=== PATIENT | female | born 2005 | race Caucasian/White ===

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

== ENCOUNTER → 2024-07-26 | Outpatient (CLI) | payer OTHER, SELFPAY ==
[2024-07-31 08:13] LABS: Deamidated Gliadin IgA 3 units (0-19); Deamidated Gliadin IgG 2 units (0-19); Endomysial Antibody IgA Negative (Negative); Immunoglobulin A 162 mg/dL (87-352); t-Transglutaminase IgA <2 U/mL (0-3)
== END | disposition home or self-care (01) ==
PROVIDERS: PCP Family Medicine; Referring Provider Family Medicine; Visit Provider Family Medicine
DX: R10.9 Unspecified abdominal pain (principal)
CPT/HCPCS: 36415; 82784; 83516; 86255

== ENCOUNTER 2024-09-03 10:09 | Emergency (ER) | payer OTHER, SELFPAY ==
[2024-09-03 10:10] VITALS: BP 107/58; PULSE 125; RESP 16; TEMP 36.7; O2SAT 98; BMI 20.5
[2024-09-03 10:12] VITALS: BP 107/58; PULSE 125; RESP 16; TEMP 36.7; O2SAT 98
--- NOTE | 2024-09-03 10:52 | EX.ED.DYSGE1 ---
HPI History of Present Illness Chief Complaint: Nausea/Vomiting/Diarrhea Informant: patient and parent Narrative Narrative: 18-year-old female presenting to the emergency room with vomiting and diarrhea. Patient states no one else is sick at home and everybody has been eating the same food. Patient states that she has not had much diarrhea but states that it is because I have not had anything to eat. She states that she is having bilious vomiting. She denies any abdominal distention or fever. She has a history of POTS and states that she feels very dehydrated. Patient states that she was recently treated for UTI about 3 weeks ago. Review of her records on her phone shows that she was on nitrofurantoin. She denies any blood in the stool or the vomit. No mucus. [facility] Medical History (Updated 09/03/24 @ 12:[address] Acosta Leger DO) GERD (gastroesophageal reflux disease) Migraine Postural orthostatic tachycardia syndrome [POTS] Seasonal allergies Home Medications ?Medication ?Instructions ?Recorded ?Last Taken ?Type rizatriptan 10 mg tablet 1 tab PO Q2H PRN Headache 07/24/19 Unknown History ondansetron 4 mg disintegrating 4 mg PO Q6H PRN PRN Nausea #15 tabs 09/03/24 Unknown Rx tablet pantoprazole 20 mg tablet,delayed 20 mg PO DAILY 09/03/24 Unknown History release Allergy/AdvReac Type Severity Reaction Status Date / Time No Known Allergies Allergy Verified 09/03/24 10:13 Social History Smoking Status: Never smoker alcohol intake: never ROS ROS ED Constitutional Constitutional ED: Denies chills, fever(s) or weight loss Eyes Eyes: Denies change in vision or diplopia ENT ENT ED: Denies ear pain, rhinorrhea or sore throat Cardiovascular Cardiovascular: Denies chest pain, orthopnea, palpitations or racing heartbeat Respiratory/Chest Respiratory/Chest: Denies cough, dyspnea or orthopnea Gastrointestinal Gastrointestinal: Reports diarrhea, nausea and vomiting; Denies abdominal pain Genitourinary Genitourinary ED: Denies dysuria, hematuria or urinary frequency Musculoskeletal Musculoskeletal: Denies arthralgias or myalgias Integumentary Denies abscess or rash Neurologic Neurologic: Denies headache(s) or weakness Psychiatric Psychiatric: Denies anxiety, depression, suicidal ideation or suicidal thoughts Endocrine Endocrinology: Denies polydipsia, polyphagia or polyuria Allergic/Immunologic Allergic/Immunologic ED: Denies mouth swelling, tongue swelling or urticaria EXAM Physical Exam Const Vital Signs: 09/03/24 10:10 09/03/24 10:12 Temperature 98.1 F 98.1 F Temperature Source Oral Oral Pulse Rate 125 H 125 H Respiratory Rate 16 16 Blood Pressure 107/58 L 107/58 L Blood Pressure Mean 74 74 Pulse Ox 98 98 Oxygen Delivery Method Room Air Positive well nourished and well developed General Appearance ED: well developed and NAD HEENT Reports normocephalic, head/scalp atraumatic and moist mucous membranes Eyes PERRL and EOMs intact bilaterally Neck no lymphadenopathy, supple and no JVD Resp normal respiratory effort and clear to auscultation bilaterally Cardio regular rate, regular rhythm and no murmurs Rate: tachycardic GI normal to inspection, nondistended, normoactive bowel sounds and non-tender Palpation: soft Back/Spine no CVA tenderness and normal ROM Extremity normal to inspection General Extremety ED: Negative for edema General Extremity: Negative for edema Neuro oriented x3 and CN's II-XII intact bilaterally Sensorium / Orientation: alert Motor Exam: strength 5/5 throughout Psych mental status grossly normal Mood & Affect: Negative for depressed or tearful Skin no rashes or lesions noted and no wounds MDM MDM MDM Narrative Medical decision making narrative: Differential diagnosis includes dehydration POTS gastroenteritis (viral and bacterial) electrolyte abnormalities hypoglycemia hyperglycemia Patient received IV fluids as well as Zofran. Potassium noted to be low at 3.2 with a glucose of 109 creatinine 0.49 BUN of 15.. Serum CO2 is 25. Her symptoms have been present for less than 24 hours. I think the potassium 3.2 is most likely send electrolyte shift should normalize as she hydrates and advance his diet. I will write for Zofran at home. Patient to return if worsening or concerns History & Record Review Discussion w/independent historian: Patient and Family Lab Data Attestation: I reviewed the patient's lab results. Labs: Laboratory Results - last 24 hr 09/03/24 11:15 Sodium 136 Potassium 3.2 L Chloride 106 Carbon Dioxide 25.0 Anion Gap 5 BUN 15 Creatinine 0.49 L Estim Creat Clear Calc 173.23 Est GFR (MDRD) Af Amer 209 Est GFR (MDRD) Non-Af 173 BUN/Creatinine Ratio 30.8 H Glucose 109 H Calcium 9.1 Discharge Plan Triage Chief Complaint: Nausea/Vomiting/Diarrhea ED Provider: Acosta Leger Dx/Rx/DC Orders Clinical Impression: Gastroenteritis, Acute hypokalemia Instructions: ED Gastroenteritis, Viral (Adult) Prescriptions: New ondansetron 4 mg tablet,disintegrating 4 mg PO Q6H PRN PRN (Reason: Nausea) Qty: 15 0RF No Action rizatriptan 10 MG tablet 1 tab PO Q2H PRN (Reason: Headache) Patient Comments: TAKE 1 TABLET BY MOUTH NEEDED, MAY REPEAT IN 2 HOURS IF NEEDED pantoprazole 20 mg tablet,delayed release (DR/EC) 20 mg PO DAILY Primary Care Provider: Jw Sanchez Referrals: Jw Sanchez MD [Primary Care Provider] - Print Language: Bulgarian Disposition Disposition: Home, Self Care
[2024-09-03] MEDS: Ondansetron 4 MG/2 ML Vial IV (11:11)
[2024-09-03] MEDS: 0.9% Normal Saline (1000mL) 1,000 ML 1000 ML IV (11:11)
[2024-09-03 11:35] LABS: Anion Gap 5 (5-15); BUN 15 mg/dL (7-18); BUN/Creat Ratio 30.8 RATIO (10-20); Calcium,Total 9.1 mg/dL (8.5-10.1); Chloride 106 mmol/L (98-107); Creatinine, Serum 0.49 mg/dL (0.55-1.02); EST Glomerular Filtration Rate 173 mL/min (>60); Est Glom Filt Rate - Afr Amer 209 mL/min (>60); Estimated Creatinine Clearance 173.23 ml/min; Glucose 109 mg/dL (74-106); Potassium 3.2 mmol/L (3.5-5.1); Sodium Level 136 mmol/L (136-145)
[2024-09-03 12:35] VITALS: BP 92/53; PULSE 88; RESP 16; TEMP 36.5; O2SAT 99
== END 2024-09-03 12:35 | disposition home or self-care (01) ==
PROVIDERS: Emergency Provider Emergency Medicine; PCP Family Medicine; Visit Provider Emergency Medicine
DX: K52.9 Noninfective gastroenteritis and colitis, unspecified (principal); E87.6 Hypokalemia
CPT/HCPCS: 80048; 96361; 96374; 99283; J2405

== ENCOUNTER 2024-12-07 14:18 | Emergency (ER) | payer OTHER, MEDICAID, SELFPAY ==
[2024-12-07 14:19] VITALS: BP 110/58; PULSE 89; RESP 18; TEMP 36.8; O2SAT 100; BMI 21.6
--- NOTE | 2024-12-07 14:51 | EKG12_ITS ---
Test Reason : CP Blood Pressure : */* mmHG Vent. Rate : 74 BPM Atrial Rate : 74 BPM P-R Int : 144 ms QRS Dur : 88 ms QT Int : 374 ms P-R-T Axes : 61 72 45 degrees QTcB Int : 415 ms Normal sinus rhythm Normal ECG Confirmed by MICHELLE OSORIO, REESE ([id number]), news videotape editor RENETTA SEGAL ([id number]) on 12/10/2024 5:54:12 AM Referred By: DEJAN/AGUSTO Confirmed By: REESE MARTINEZ MD
--- NOTE | 2024-12-07 14:54 | ED.VIS.CHEST ---
HPI History of Present Illness Chief Complaint: Chest Pain Informant: patient Narrative Narrative: Patient is a 18-year-old female with history of GERD and POTS presenting with chest discomfort, anterior neck pain and shortness of breath. Patient was seen at [facility] Emergency room yesterday for similar symptoms. She states she has developed chest pain in the center of her chest that radiates up to her neck. Yesterday she had strep swab that was negative, chest x-ray, CBC, BMP and D-dimer which were all negative. She does report a history of a postoperative DVT and her mother has a history of tubes clotting disorders. Today patient states that her chest pain which used to be intermittent and worse with deep breathing is mild more constant but still exacerbated by breathing. She states she feels like she is breathing through a straw on her neck. She is coughing today. She denies any fever or chills. Denies any nausea or vomiting. Does not feel worse when she lays flat. Does have a history of acid reflux and tried taking Mylanta with no relief of her symptoms. Patient denies any swelling of her legs. She has IUD. She denies concern for . Is not reporting any urinary symptoms. Patient does note she was treated for strep throat about a month ago. She states that resolved. She currently denies any sore throat. She was told yesterday that her throat did look red. She also does report a history of seasonal allergies. Through [facility], results from yesterday show normal D-dimer (less than 190), chest x-ray with no acute process, BMP that is normal and CBC that was also normal with no monocyte predominance. Strep swab is negative. [facility] Medical History GERD (gastroesophageal reflux disease) Migraine Postural orthostatic tachycardia syndrome [POTS] Seasonal allergies Home Medications ?Medication ?Instructions ?Recorded ?Last Taken ?Type rizatriptan 10 mg tablet 1 tab PO Q2H PRN Headache 07/24/19 Unknown History ondansetron 4 mg disintegrating 4 mg PO Q6H PRN PRN Nausea #15 tabs 09/03/24 Unknown Rx tablet pantoprazole 20 mg tablet,delayed 20 mg PO DAILY 09/03/24 Unknown History release Allergy/AdvReac Type Severity Reaction Status Date / Time No Known Allergies Allergy Verified 12/07/24 14:18 Social History Smoking Status: Never smoker alcohol intake: never ROS ROS ED Constitutional Constitutional ED: Denies chills or fever(s) ENT ENT ED: Reports other Details: anterior neck pain ; Denies rhinorrhea or sore throat Cardiovascular Cardiovascular: Reports chest pain; Denies orthopnea or palpitations Respiratory/Chest Respiratory/Chest: Reports cough and dyspnea; Denies orthopnea or sputum Gastrointestinal Gastrointestinal: Denies abdominal pain, nausea or vomiting Musculoskeletal Musculoskeletal: Denies arthralgias or myalgias Integumentary Denies rash Neurologic Neurologic: Denies paresthesias or weakness Psychiatric Psychiatric: Denies anxiety Hematologic/Lymphatic Hematologic/Lymphatic: Denies easy bleeding or easy bruising EXAM Physical Exam Const Vital Signs: 12/07/24 14:19 12/07/24 14:43 12/07/24 15:18 Temperature 98.3 F 98.9 F Temperature Source Oral Oral Pulse Rate 89 80 Respiratory Rate 18 18 Respiratory Effort Normal Blood Pressure 110/58 L 99/76 Blood Pressure Mean 75 83 Pulse Ox 100 98 Oxygen Delivery Method Room Air Room Air 12/07/24 16:18 12/07/24 17:00 12/07/24 17:12 Temperature 98.9 F Temperature Source Pulse Rate 79 78 64 Respiratory Rate 18 16 18 Respiratory Effort Blood Pressure 102/64 128/78 H 99/71 Blood Pressure Mean 76 94 80 Pulse Ox 100 98 99 Oxygen Delivery Method Room Air Room Air Positive well nourished and well developed General Appearance ED: well developed and NAD HEENT Reports moist mucous membranes HEENT Narrative: Mildly injected oropharynx more consistent with allergies or possible reflux. Normal tympanic membranes. Uvula is midline. Normal phonation. Eyes PERRL Neck supple Neck Narrative: No significant lymphadenopathy. Normal range of motion of the neck. There is mild tenderness over the intra aspect of the neck where the thyroid is. No nodules appreciated. Chest Wall inspection of chest normal and palpation of chest normal Resp normal respiratory effort and clear to auscultation bilaterally Auscultation: Negative for rhonchi or wheezes Cardio regular rate, regular rhythm and no murmurs Peripheral Pulses: radial pulses present and dorsalis pedis pulses present GI normal to inspection, nondistended, normoactive bowel sounds, soft to palpation and non-tender Extremity normal to inspection General Extremety ED: Negative for edema General Extremity: Negative for edema Neuro oriented x3 Sensorium / Orientation: awake and alert Motor Exam: Negative for general weakness Psych mental status grossly normal Skin no rashes or lesions noted and no wounds Heart Score History: Slightly/Non-Suspicious ECG: Normal Age: </= 45 years Risk Factors: No Risk Factors Score: 0 MDM MDM MDM Narrative Medical decision making narrative: Patient is evaluated for worsening chest pain with shortness of breath. Was seen at [facility] Emergency room yesterday for the same complaints which she feels her symptoms are more severe today. Patient had a D-dimer yesterday that was less than 190 and I do not think this needs to be repeated. She is not hypoxic, tachycardic or tachypneic. She does have some tenderness to palpation over the anterior lower neck surgery could possibly have a thyroiditis or some other type of thyroid disease but TSH is added on. This is normal. Her workup is very reassuring with a normal CBC, CMP, high-sensitivity troponin and TSH. Chest x-ray as well as soft tissue neck x-ray reviewed by myself as well as radiology does not show any acute process. Given her stable workup compared to yesterday and improvement with Toradol as well as normal vital signs I think that she is stable for outpatient follow-up. Counseled that I do not know the exact cause of her symptoms but the differential still includes seasonal allergies, muscle skeletal pain, esophagitis/reflux and less likely cardiac cause or arrhythmia. Encouraged to follow-up outpatient to primary care doctor and get to return the emergency room should she ever progression worsening of her symptoms. Patient and mother verbalized agreement with this plan. Patient discharged home in stable and improved condition. History & Record Review Additional record(s) reviewed:: Prior outpatient record (see HPI) Lab Data Attestation: I reviewed the patient's lab results. Labs: Laboratory Results - last 24 hr 12/07/24 15:00 WBC 9.4 RBC 4.28 Hgb 12.1 Hct 36.8 L MCV 86.0 MCH 28.3 MCHC 32.9 RDW Std Deviation 39.8 RDW Coeff of Guerrero 12.7 Plt Count 210 MPV 8.6 Immature Gran % (Auto) 0.500 Neut % (Auto) 63.7 Lymph % (Auto) 27.1 [place] % (Auto) 6.7 Eos % (Auto) 1.5 Baso % (Auto) 0.5 Absolute Neuts (auto) 6.0 Absolute Lymphs (auto) 2.54 Nucleated RBC % 0 Sodium 139 Potassium 3.9 Chloride 105 Carbon Dioxide 24.2 Anion Gap 10 BUN 9 Creatinine 0.53 L Estim Creat Clear Calc 166.03 Est GFR (MDRD) Non-Af 137 BUN/Creatinine Ratio 17.2 Glucose 93 Calcium 9.4 Total Bilirubin 0.85 AST 19 ALT 14 Alkaline Phosphatase 100 Troponin T High Sens < 6 Total Protein 6.3 Albumin 4.2 Globulin 2.1 L Albumin/Globulin Ratio 2.0 TSH 0.716 Radiography Diagnostic Testing: Clinical Impression(s) from Imaging Studies Chest X-Ray 12/07/24 15:10 IMPRESSION: NEGATIVE CHEST Reading Location: [facility] Soft Tissue Neck X-Ray 12/07/24 15:10 IMPRESSION: Unremarkable exam. Reading Location: [facility] Rhythm Strip Rhythm Strip: Sinus Rhythm Rate: 74 Ectopy: None EKG Initial EKG: Attestation: I personally reviewed and interpreted this EKG as follows: Interpretation: Sinus Rhythm Comments: Normal sinus rhythm rate of 74 bpm Normal axis Normal intervals Normal ST segments Discharge Plan Triage Chief Complaint: Chest Pain ED Provider: Daya Castro Dx/Rx/DC Orders Clinical Impression: Acute dyspnea, Chest pain of uncertain etiology, Anterior neck pain Instructions: ED Chest Pain, Uncertain Cause, ED Dyspnea, ED Neck Pain Prescriptions: No Action rizatriptan 10 MG tablet 1 tab PO Q2H PRN (Reason: Headache) Patient Comments: TAKE 1 TABLET BY MOUTH NEEDED, MAY REPEAT IN 2 HOURS IF NEEDED pantoprazole 20 mg tablet,delayed release (DR/EC) 20 mg PO DAILY ondansetron 4 mg tablet,disintegrating 4 mg PO Q6H PRN PRN (Reason: Nausea) Qty: 15 0RF Primary Care Provider: Jw Sanchez Referrals: Jw Sanchez MD [Primary Care Provider] - Activity Restrictions/Additional Instructions: Your workup today was very reassuring and normal. The cause of your constellation of symptoms is not clear. Please follow-up outpatient the primary care doctor. You may take Tylenol or ibuprofen as needed for pain. Print Language: German Disposition Disposition: Home, Self Care Discharge Date/Time: 12/07/24 17:13
[2024-12-07] MEDS: Ketorolac 15 MG/ML Vial IV (15:06)
[2024-12-07 15:09] LABS: Absolute Lymphocyte Count 2.54 X10^3/uL (0.83-4.51); Basophil# 0.05 X10^3/uL; Basophil% 0.5 % (0-1); Eosinophil# 0.14 X10^3/uL; Eosinophils% 1.5 % (0-5); Hematocrit 36.8 % (37-47); Hemoglobin 12.1 g/dL (12.0-15.0); Lymphocyte # 2.54 X10^3/ul (0.83-4.51); Lymphocyte % 27.1 % (19-41); Mean Corp Hgb Conc 32.9 g/dL (32-36); Mean Corpuscular Hgb 28.3 pg (27.0-32.0); Mean Platelet Vol. 8.6 fl (6.2-12.0); Monocyte# 0.63 X10^3/uL; Monocyte% 6.7 % (0-10); NRBC Flagged by Analyzer 0 % (0-5); Neutrophil # 5.96 X10^3/uL (2.7-7.7); Neutrophil % 63.7 % (47-70); Platelet Count 210 K/mm3 (150-450); RBC Distribution Width CV 12.7 % (11.6-14.6); RBC Distribution Width SD 39.8 fl (35.1-43.9); Red Blood Count 4.28 M/mm3 (4.2-5.4); White Blood Count 9.4 K/mm3 (4.4-11.0)
--- NOTE | 2024-12-07 15:10 | RAD_ITS ---
PROCEDURE: NECK FOR SOFT TISSUE 12/07/2024 REASON FOR EXAM: PAIN, ANTERIOR NECK TECHNIQUE: AP and lateral view(s) of the soft tissues of the neck COMPARISON: None FINDINGS: Findings: No evidence of soft tissue swelling or radiopaque foreign body. Prevertebral and epiglottis contours appear normal. Other: RAD/Neck for Soft Tissue IMPRESSION: Unremarkable exam. Reading Location: [facility]
--- NOTE | 2024-12-07 15:10 | RAD_ITS ---
PROCEDURE: CHEST PA AND LATERAL 12/07/2024 REASON FOR EXAM: CHEST PAIN TECHNIQUE: Frontal and lateral views of the chest. COMPARISON: None FINDINGS: Hardware: EKG electrodes are seen. Heart: The heart size is normal. Mediastinum: The mediastinal contour is unremarkable. Lungs: The lungs are clear. Bones: The bones are unremarkable. RAD/Chest PA and Lateral IMPRESSION: NEGATIVE CHEST Reading Location: [place] [id number]
[2024-12-07 15:18] VITALS: BP 99/76; PULSE 80; RESP 18; TEMP 37.2; O2SAT 98
[2024-12-07 15:43] LABS: AST(SGOT) 19 U/L (<=31); Alanine Aminotransfer ALT/SGPT 14 U/L (<=34); Albumin, Serum 4.2 g/dL (3.5-5.0); Alkaline Phosphatase 100 U/L (35-104); Anion Gap 10 (5-15); BUN 9 mg/dL (4-19); BUN/Creat Ratio 17.2 RATIO (10-20); Calcium,Total 9.4 mg/dL (7.6-11.0); Carbon Dioxide 24.2 mmol/L (21.0-32.0); Chloride 105 mmol/L (98-108); Creatinine, Serum 0.53 mg/dL (0.70-1.20); EST Glomerular Filtration Rate 137 (>60); Estimated Creatinine Clearance 166.03 ml/min (50-250); Globulin 2.1 g/dL (2.2-4.2); Glucose 93 mg/dL (70-99); Potassium 3.9 mmol/L (3.3-5.1); Protein, Total 6.3 g/dL (5.9-8.4); Sodium Level 139 mmol/L (133-145); Total Bilirubin 0.85 mg/dL (0.00-1.30)
[2024-12-07 16:08] LABS: Thyroid Stim Hormone (TSH) 0.716 uIU/mL (0.500-4.300); Troponin T High Sensitivity < 6 ng/L (<=14)
[2024-12-07 16:18] VITALS: BP 102/64; PULSE 79; RESP 18; O2SAT 100
[2024-12-07 17:00] VITALS: BP 128/78; PULSE 78; RESP 16; O2SAT 98
[2024-12-07 17:12] VITALS: BP 99/71; PULSE 64; RESP 18; TEMP 37.2; O2SAT 99
== END 2024-12-07 17:13 | disposition home or self-care (01) ==
PROVIDERS: Emergency Provider Emergency Medicine; PCP Family Medicine; Visit Provider Emergency Medicine
DX: R07.9 Chest pain, unspecified (principal); R06.02 Shortness of breath; M54.2 Cervicalgia; K21.9 Gastro-esophageal reflux disease without esophagitis; Z79.899 Other long term (current) drug therapy
CPT/HCPCS: 70360; 71046; 80053; 84443; 84484; 85025; 87631; 93005; 96374; 99284; A4216

== ENCOUNTER → 2025-06-04 | Outpatient (CLI) | payer OTHER, MEDICAID, SELFPAY ==
[2025-06-04 11:20] LABS: Free T3 3.5 pg/mL (2.18-3.98); Vitamin B12 522 pg/mL (180-914); Vitamin D,25 Hydroxy 42.0 ng/mL (30-100)
[2025-06-04 11:24] LABS: CRP < 3.00 mg/L (0.0-3.0); Magnesium 2.2 mg/dL (1.5-2.2)
[2025-06-05 15:08] LABS: ANTINUCLEAR ANTIBODIES DIRECT Negative (Negative)
[2025-06-09 08:08] LABS: Dilute Russell Viper Venom 37.6 sec (0.0-47.0); Interpretation Comment: (.); PTT-LA 43.1 sec (0.0-43.5); Zinc, Plasma or Serum 74 ug/dL (44-115)
== END | disposition home or self-care (01) ==
LOC: MFPLAB 09:10
PROVIDERS: PCP Family Medicine; Referring Provider Family Medicine; Visit Provider Family Medicine
DX: M35.3 Polymyalgia rheumatica (principal); R53.83 Other fatigue
CPT/HCPCS: 82306; 82607; 83735; 84439; 84443; 84481; 84630; 85652; 86038; 86140; 86431